=== PATIENT | male | born 1975 | race Caucasian/White ===

== ENCOUNTER 2016-12-08 18:09 | Emergency (ER) | payer OTHER ==
[~2016-12-08] VITALS: Ht 180.3 cm; Wt 116.8 kg
[2016-12-08 18:22] VITALS: BP 149/91
[2016-12-08] MEDS ORDERED: MOTRIN800 MG PO (19:42)
== END 2016-12-08 19:48 | disposition home or self-care (01) ==
LOC: EME 18:09
DX: S40.011A Contusion of right shoulder, initial encounter (principal); V49.50XA Passenger injured in collision with unspecified motor vehicles in traffic accident, initial encounter; Y92.410 Unspecified street and highway as the place of occurrence of the external cause; Z87.820 Personal history of traumatic brain injury; F17.200 Nicotine dependence, unspecified, uncomplicated
CPT/HCPCS: 71020; 73000; 99281; 99283